=== PATIENT | female | born 1985 | race Caucasian/White ===

== ENCOUNTER 2018-08-20 18:00 | Day surgery (SDC) | payer OTHER ==
[2018-08-20] MEDS ORDERED: IRON SUCROSE INJECTION 200 MG in SODIUM CHLORIDE 100 ML IVPB ONE (18:15)
[2018-08-20 18:36] VITALS: PULSE 61; TEMP 97.9
[2018-08-20 18:37] VITALS: BP 162/73
== END 2018-08-20 18:52 | disposition home or self-care (01) ==
LOC: JINFUSION 18:00 → J7W 18:01 → JINFUSION 18:52
PROVIDERS: ATTEND Internal Medicine Nephrology
PROC: 3E033GC Introduction of Other Therapeutic Substance into Peripheral Vein, Percutaneous Approach (ICD-10-PCS; principal; 2018-08-20)
DX: D50.9 Iron deficiency anemia, unspecified (principal)
CPT/HCPCS: 96365; J1756

== ENCOUNTER 2022-05-27 17:49 | Emergency (ER) | payer BC ==
[2022-05-27 17:53] VITALS: BP 138/85; PULSE 87; RESP 20; TEMP 98.4; BMI 22.3
== END 2022-05-27 18:18 | disposition home or self-care (01) ==
LOC: JER 17:49
DX: Z11.52 Encounter for screening for COVID-19 (principal)
CPT/HCPCS: 99283-25; C9803-CS; U0003; U0005

== ENCOUNTER 2022-05-28 09:00 | Day surgery (SDC) | payer BC ==
[2022-05-24 13:48] VITALS: BMI 22.3
[2022-05-28] MEDS ORDERED: IBUPROFEN 600 MG TABLET (FP) PO PRN (10:02)
[2022-05-28] MEDS ORDERED: ONDANSETRON 4 MG/2 ML VIAL IVPUSH PRN (10:02)
[2022-05-28] MEDS ORDERED: IBUPROFEN 800 MG/8 ML IJ IVPB PRN (10:02)
[2022-05-28] MEDS ORDERED: oxyCODONE HCL 5 MG TABLET PO PRN (10:02)
[2022-05-28] MEDS ORDERED: ELECTROLYTE-148 SOLN 1,000 ML IV SCH (10:15)
[2022-05-28 10:29] LABS: BASO % 0.3 % (0-2.0); EOS % 1.4 % (0-4.5); HEMATOCRIT 34.6 % (32.4-45.2); HEMOGLOBIN 11.3 GM/dL (10.7-15.3); MCH 28.9 pg (25.7-33.7); MCHC 32.6 g/dl (32.0-36.0); MEAN CELL VOLUME 88.8 fl (80-96); MEAN PLT VOLUME 8.5 fl (7.5-11.1); MONO % 8.1 % (3.8-10.2); NEUT % 40.2 % (42.8-82.8); PLATELET COUNT 281 10^3/uL (134-434); RBC 3.89 M/mm3 (3.60-5.2); RDW 15.9 % (11.6-15.6); WHITE BLOOD COUNT 6.9 K/mm3 (4.0-10.0)
[2022-05-28 10:49] LABS: ALBUMIN 3.3 g/dl (3.4-5.0); CALCIUM 8.8 mg/dL (8.5-10.1)
[2022-05-28 10:50] LABS: BLOOD UREA NITROGEN 27.5 mg/dL (7-18)
[2022-05-28 10:52] LABS: CREATININE 1.6 mg/dL (0.55-1.3)
[2022-05-28 10:54] LABS: TOT PROT 7.7 g/dl (6.4-8.2)
[2022-05-28] MEDS ORDERED: MIDAZOLAM HCL 2 MG/2 ML SINGLE DOSE VIAL ONE (13:29)
[2022-05-28] MEDS ORDERED: PROPOFOL 20 ML ONE (13:29)
[2022-05-28] MEDS ORDERED: LIDOCAINE HCL/PF 2% SDV 5ML VIAL ONE (13:29)
[2022-05-28] MEDS ORDERED: ceFAZolin SODIUM 1 GM VIAL ONE (13:49)
[2022-05-28 15:29] VITALS: RESP 20; TEMP 97.8
[2022-05-28 16:39] VITALS: BP 127/74; PULSE 75
== END 2022-05-28 16:33 | disposition home or self-care (01) ==
LOC: JASU-SURG 09:00
PROVIDERS: ATTEND Obstetrics & Gynecology
PROC: 0UBC7ZX Excision of Cervix, Via Natural or Artificial Opening, Diagnostic (ICD-10-PCS; principal; 2022-05-28 12:30)
DX: N87.1 Moderate cervical dysplasia (principal)
CPT/HCPCS: 36415; 80053; 81025; 85025; 88305-TC; 88307-TC; 94760

== ENCOUNTER 2024-04-06 06:41 | Inpatient (IN) | payer OTHER ==
[2024-04-06] MEDS ORDERED: ACETAMINOPHEN INJECTION 100 ML ONE ×2 (07:41→13:50)
[2024-04-06] MEDS ORDERED: ONDANSETRON 4 MG/2 ML VIAL ONE (07:41)
[2024-04-06] MEDS: ACETAMINOPHEN 1000 MG/100 ML BAG IVPB ONE ×2 (08:03→13:54)
[2024-04-06] MEDS: SODIUM CHLORIDE 0.9% 1000 ML INFUS.BAG IV STA (08:03)
[2024-04-06] MEDS: ONDANSETRON 4 MG/2 ML VIAL IVPUSH ONE (08:03)
[2024-04-06] MEDS ORDERED: MEROPENEM-0.9% SODIUM CHLORIDE 1 GM/50 ML BAG IVPB ONE (08:05)
[2024-04-06 08:12] LABS: HEMATOCRIT 33.7 % (32.4-45.2); HEMOGLOBIN 11.2 GM/dL (10.7-15.3); MCH 30.5 pg (25.7-33.7); MCHC 33.3 g/dl (32.0-36.0); MEAN CELL VOLUME 91.6 fl (80-96); MEAN PLT VOLUME 8.3 fl (7.5-11.1); PLATELET COUNT 332 10^3/uL (134-434); RBC 3.68 M/mm3 (3.60-5.2); RDW 18.5 % (11.6-15.6)
[2024-04-06 08:16] LABS: INR 1.31 (0.83-1.09); PROTHROMBIN TIME (PATIENT) 14.7 SEC (9.7-13.0)
[2024-04-06 08:18] LABS: ACTIVATED PTT 28.1 SECONDS (25.2-36.5)
[2024-04-06] MEDS: MEROPENEM-0.9% SODIUM CHLORIDE 1 GM/50 ML BAG IVPB ONE (08:22)
[2024-04-06] MEDS: MEROPENEM 1 GM in DEXTROSE 5%-WATER 100 ML IVPB ONE (08:22)
[2024-04-06 08:29] LABS: POTASSIUM 4.4 mmol/L (3.5-5.1)
[2024-04-06 08:30] LABS: CALCIUM 8.8 mg/dL (8.5-10.1)
[2024-04-06 08:31] LABS: BLOOD UREA NITROGEN 27.8 mg/dL (7-18)
[2024-04-06 08:36] LABS: BILIRUBIN,TOTAL 1.4 mg/dL (0.2-1); TOT PROT 7.2 g/dl (6.4-8.2)
[2024-04-06] MEDS: LACTATED RINGERS SOLUTION 1000 ML INFUS.BAG IV ONE ×2 (10:00→11:17)
[2024-04-06 10:16] LABS: ANISOCYTOSIS 0; HELMET CELLS 0; HOWELL-JOLLY BODIES 0; MACROCYTOSIS 0; OVALOCYTE 0; ROULEAU 0; SICKELED CELLS 0; TARGET CELLS 0; TEAR DROP CELLS 0; TOXIC GRANULATION 0
[2024-04-06] MEDS ORDERED: SUCCINYLCHOLINE CHLORIDE 200 MG/10 ML SYRINGE ONE (11:22)
[2024-04-06] MEDS ORDERED: PROPOFOL 20 ML ONE (11:22)
[2024-04-06] MEDS ORDERED: MIDAZOLAM HCL 2 MG/2 ML SINGLE DOSE VIAL ONE (11:22)
[2024-04-06 11:25] LABS: HEMOGLOBIN 10.8 GM/dL (10.7-15.3); LYMPH % 20.4 % (8-40); MCH 30.1 pg (25.7-33.7); MCHC 32.7 g/dl (32.0-36.0); MEAN CELL VOLUME 92.1 fl (80-96); MEAN PLT VOLUME 8.1 fl (7.5-11.1); MONO % 8.6 % (3.8-10.2); PLATELET COUNT 307 10^3/uL (134-434); RBC 3.58 M/mm3 (3.60-5.2); RDW 18.1 % (11.6-15.6); WHITE BLOOD COUNT 11.3 K/mm3 (4.0-10.0)
[2024-04-06 11:30] LABS: INR 1.37 (0.83-1.09); PROTHROMBIN TIME (PATIENT) 15.3 SEC (9.7-13.0)
[2024-04-06 11:33] LABS: ACTIVATED PTT 31.5 SECONDS (25.2-36.5)
[2024-04-06 11:47] LABS: CALCIUM 8.1 mg/dL (8.5-10.1)
[2024-04-06 11:48] LABS: ALBUMIN 2.7 g/dl (3.4-5.0); BLOOD UREA NITROGEN 25.9 mg/dL (7-18)
[2024-04-06 11:48] LABS: PH,URINE 5.5 (5.0-8.0); URINE BILIRUBIN Negative (NEGATIVE); URINE COLOR Yellow; URINE GLUCOSE (UA) Negative (NEGATIVE); URINE KETONE Trace (NEGATIVE); URINE LEUK ESTERASE Trace (NEGATIVE); URINE NITRITE Positive (NEGATIVE); URINE PROTEIN 2+ (NEGATIVE); URINE UROBILINOGEN 0.2 mg/dL (0.2-1.0)
[2024-04-06 11:51] LABS: URINE APPEARANCE Clear
[2024-04-06 11:51] LABS: CREATININE 1.8 mg/dL (0.55-1.3)
[2024-04-06 11:52] LABS: BILIRUBIN,TOTAL 1.1 mg/dL (0.2-1); TOT PROT 6.2 g/dl (6.4-8.2)
[2024-04-06] MEDS ORDERED: ONDANSETRON 4 MG/2 ML VIAL IVPUSH PRN (11:53)
[2024-04-06] MEDS ORDERED: IBUPROFEN 600 MG TABLET (FP) PO PRN (11:53)
[2024-04-06] MEDS ORDERED: IBUPROFEN 800 MG/8 ML IJ IVPB PRN (11:53)
[2024-04-06] MEDS ORDERED: ROCURONIUM BROMIDE 50 MG/5 ML SYRINGE ONE (12:04)
[2024-04-06] MEDS ORDERED: DEXAMETHASONE SOD PHOSPHATE 4 MG/1 ML VIAL ONE (12:14)
[2024-04-06] MEDS ORDERED: NEOSTIGMINE METHYLSULFATE 0.5 MG/1 ML - 10 ML MDV ONE (12:15)
[2024-04-06 12:23] LABS: EPI CELLS 120 /uL (0-25.1); HYALINE CASTS 2 /uL (0-3.1); URINE BACTERIA 7338 /uL (0-1359); URINE RBC 22 /uL (0-23.9); URINE WBC 966 /uL (0-25.8)
[2024-04-06] MEDS: ELECTROLYTE-148 SOLN 1,000 ML IV SCH (13:49)
[2024-04-06 13:51] LABS: HEMATOCRIT 35.9 % (32.4-45.2); HEMOGLOBIN 11.7 GM/dL (10.7-15.3); MCH 30.5 pg (25.7-33.7); MCHC 32.5 g/dl (32.0-36.0); MEAN CELL VOLUME 93.6 fl (80-96); MEAN PLT VOLUME 9.4 fl (7.5-11.1); PLATELET COUNT 77 10^3/uL (134-434); RBC 3.84 M/mm3 (3.60-5.2); WHITE BLOOD COUNT 8.2 K/mm3 (4.0-10.0)
[2024-04-06 14:12] LABS: ACTIVATED PTT 35.8 SECONDS (25.2-36.5); INR 1.28 (0.83-1.09); PROTHROMBIN TIME (PATIENT) 14.4 SEC (9.7-13.0)
[2024-04-06] MEDS: LACTATED RINGERS SOLUTION 1,000 ML IV SCH (14:36)
[2024-04-06] MEDS: predniSONE 5 MG TABLET (UD) PO SCH (18:14)
[2024-04-06] MEDS: azaTHIOprine 50 MG TABLET PO SCH (18:45)
[2024-04-06] MEDS: TACROLIMUS ANHYDROUS PO SCH (18:46)
[2024-04-06] MEDS: NIFEdipine E.R. 30 MG TABLET PO SCH (18:52)
[2024-04-06 19:53] LABS: BASO % 0.3 % (0-2.0); HEMATOCRIT 37.4 % (32.4-45.2); HEMOGLOBIN 12.2 GM/dL (10.7-15.3); LYMPH % 12.5 % (8-40); MCH 29.9 pg (25.7-33.7); MCHC 32.6 g/dl (32.0-36.0); MEAN CELL VOLUME 91.7 fl (80-96); MEAN PLT VOLUME 8.2 fl (7.5-11.1); MONO % 4.5 % (3.8-10.2); NEUT % 82.7 % (42.8-82.8); PLATELET COUNT 322 10^3/uL (134-434); RBC 4.07 M/mm3 (3.60-5.2); RDW 18.7 % (11.6-15.6); WHITE BLOOD COUNT 11.1 K/mm3 (4.0-10.0)
[2024-04-06 20:02] LABS: INR 1.23 (0.83-1.09); PROTHROMBIN TIME (PATIENT) 13.8 SEC (9.7-13.0)
[2024-04-06 20:05] LABS: ACTIVATED PTT 33.8 SECONDS (25.2-36.5)
[2024-04-06] MEDS: MEROPENEM-0.9% SODIUM CHLORIDE 1 GM/50 ML BAG IVPB SCH (20:23)
[2024-04-06] MEDS: VANCOMYCIN/WATER FOR INJ (PEG) 1,000 MG/200 ML BAG IVPB SCH (20:23)
[2024-04-06] MEDS: CHLORHEXIDINE GLUCONATE 4% CLEANSER FOR DECOLONIZATION TP SCH (21:19)
[2024-04-06] MEDS: MUPIROCIN 2% TOPICAL OINTMENT FOR DECOLONIZATION NS SCH (21:19)
[2024-04-07 06:38] LABS: BASO % 0.5 % (0-2.0); EOS % 0.4 % (0-4.5); HEMATOCRIT 36.4 % (32.4-45.2); HEMOGLOBIN 12.1 GM/dL (10.7-15.3); LYMPH % 15.4 % (8-40); MCH 30.5 pg (25.7-33.7); MCHC 33.2 g/dl (32.0-36.0); MEAN CELL VOLUME 91.8 fl (80-96); MEAN PLT VOLUME 8.5 fl (7.5-11.1); MONO % 6.8 % (3.8-10.2); NEUT % 76.9 % (42.8-82.8); PLATELET COUNT 284 10^3/uL (134-434); RBC 3.97 M/mm3 (3.60-5.2); RDW 18.9 % (11.6-15.6); WHITE BLOOD COUNT 10.1 K/mm3 (4.0-10.0)
[2024-04-07 07:03] LABS: POTASSIUM 4.5 mmol/L (3.5-5.1)
[2024-04-07 07:06] LABS: CALCIUM 8.1 mg/dL (8.5-10.1)
[2024-04-07 07:07] LABS: ALBUMIN 2.5 g/dl (3.4-5.0); MAGNESIUM 1.9 mg/dL (1.8-2.4)
[2024-04-07 07:10] LABS: CREATININE 1.5 mg/dL (0.55-1.3)
[2024-04-07 07:11] LABS: TOT PROT 6.1 g/dl (6.4-8.2)
[2024-04-07] MEDS ORDERED: ERTAPENEM SODIUM 1 GM in SODIUM CHLORIDE 50 ML IVPB SCH (10:00)
[2024-04-07 13:06] VITALS: BMI 23.3
[2024-04-07] MEDS: MEROPENEM-0.9% SODIUM CHLORIDE 1 GM/50 ML BAG IVPB SCH (17:18)
[2024-04-07] MEDS: TACROLIMUS 4 MG PO SCH (17:57)
[2024-04-07] MEDS: MEROPENEM 1 GM in DEXTROSE 5%-WATER 100 ML IVPB SCH (17:57)
[2024-04-07] MEDS: VANCOMYCIN 1,000 MG in DEXTROSE 5%-WATER - 250 ML IVPB SCH (17:58)
[2024-04-07] MEDS: NIFEdipine E.R. 30 MG TABLET PO SCH (21:20)
[2024-04-07] MEDS: TACROLIMUS ANHYDROUS PO SCH ×2 (21:20→21:49)
[2024-04-07] MEDS ORDERED: TACROLIMUS ANHYDROUS 5 MG CAPSULE PO SCH (22:00)
[2024-04-07 22:45] VITALS: RESP 20
[2024-04-08 09:36] LABS: BASO % 0.3 % (0-2.0); EOS % 2.9 % (0-4.5); HEMATOCRIT 32.6 % (32.4-45.2); HEMOGLOBIN 10.8 GM/dL (10.7-15.3); LYMPH % 33.4 % (8-40); MCH 30.4 pg (25.7-33.7); MEAN CELL VOLUME 91.9 fl (80-96); MONO % 8.3 % (3.8-10.2); NEUT % 55.1 % (42.8-82.8); PLATELET COUNT 315 10^3/uL (134-434); RBC 3.55 M/mm3 (3.60-5.2); WHITE BLOOD COUNT 6.5 K/mm3 (4.0-10.0)
[2024-04-08] MEDS ORDERED: TACROLIMUS ANHYDROUS PO SCH (10:00)
[2024-04-08] MEDS ORDERED: NIFEdipine E.R. 30 MG TABLET PO SCH (10:00)
[2024-04-08] MEDS ORDERED: TACROLIMUS 0.5 MG CAPSULE PO SCH (10:00)
[2024-04-08 10:07] LABS: BLOOD UREA NITROGEN 23.4 mg/dL (7-18); CALCIUM 8.5 mg/dL (8.5-10.1)
[2024-04-08 10:11] LABS: CREATININE 1.4 mg/dL (0.55-1.3)
[2024-04-08 15:59] VITALS: TEMP 98.2
[2024-04-08 16:03] VITALS: BP 120/67; PULSE 77
== END 2024-04-08 16:51 | disposition home or self-care (01) | DRG 770 ==
LOC: JER 06:41 → JERBED 11:18 → JICU 14:54
PROVIDERS: ADMIT Internal Medicine Pulmonary Disease; ATTEND Internal Medicine
PROC: 10D17ZZ Extraction of Products of Conception, Retained, Via Natural or Artificial Opening (ICD-10-PCS; principal; 2024-04-06 08:00)
DX: O03.37 Sepsis following incomplete spontaneous abortion (principal); R65.21 Severe sepsis with septic shock; N10 Acute pyelonephritis; N17.9 Acute kidney failure, unspecified; Z94.0 Kidney transplant status; D69.6 Thrombocytopenia, unspecified; N18.9 Chronic kidney disease, unspecified; E11.9 Type 2 diabetes mellitus without complications; Q51.3 Bicornate uterus; O02.89 Other abnormal products of conception
CPT/HCPCS: 0241U-QW; 36415; 80048; 80053; 80197; 81003; 82010; 82962; 83605; 83735; 84702; 84703; 85025; 85027; 85384; 85610; 85730; 86850; 86900; 86901; 87040; 87086; 87481; 88305-TC; 93005; 93010; 94760; 99291; J0131